=== PATIENT | female | born 1980 | race Two or more races ===

== ENCOUNTER 2016-11-30 13:49 | Emergency (ER) | payer OTHER ==
[~2016-11-30] VITALS: Ht 154.9 cm; Wt 55.8 kg
[2016-11-30 13:52] VITALS: BP 108/70
== END 2016-11-30 16:31 | disposition left against medical advice (07) ==
LOC: ER 13:49 → EDBD 13:49 → ER 16:31
DX: R11.2 Nausea with vomiting, unspecified (principal); R10.9 Unspecified abdominal pain; Z53.21 Procedure and treatment not carried out due to patient leaving prior to being seen by health care provider